=== PATIENT | male | born 1985 | race Caucasian/White ===

== ENCOUNTER 2020-12-02 17:41 | Emergency (ER) | payer MEDICAID ==
[~2020-12-02] VITALS: Ht 175.3 cm; Wt 88.4 kg
--- NOTE | 2020-12-02 18:50 | NUR ---
Unknown room time from lobby. Pt not seen by this RN due to critical care being done in another pt room. On-coming RN aware this pt is in room and has not been seen or assessed by nursing except initial triage earlier.
[2020-12-02 19:28] VITALS: BP 142/61
== END 2020-12-02 19:34 | disposition home or self-care (01) ==
LOC: ED 19:28
DX: K40.91 Unilateral inguinal hernia, without obstruction or gangrene, recurrent (principal)
CPT/HCPCS: 99281